=== PATIENT | male | born 2000 | race Caucasian/White ===

== ENCOUNTER 2018-01-10 21:00 | Emergency (ER) | payer BC ==
[2018-01-10] MEDS ORDERED: Ketorolac INJ* 30 MG/ML 1 ML VIAL IV PUSH ONE (22:18)
[2018-01-10] MEDS ORDERED: Diphenoxylat/Atrop 2.5-0.025M* 1 TAB PO ONE (22:18)
[2018-01-10] MEDS ORDERED: Metoclopramide IV* 5 MG/ML 2 ML VIAL IV SLOW PU ONE (22:18)
[2018-01-10] MEDS ORDERED: NS 0.9% 1000 ML* 1,000 ML IV ONE (22:18)
[2018-01-10 22:29] LABS: ABS Basophils 0 10^3/ul (0-0.2); ABS Eosinophils 0 10^3/ul (0-0.6); ABS Monocytes 0.7 10^3/ul (0-0.8); ABS Neutrophils 8.1 10^3/ul (1.5-7.7); ABS Nucleated RBC 0 10^3/ul; Eosinophil % 0 % (0-6); Hematocrit 47 % (42-52); Hemoglobin 16.1 g/dl (14.0-18.0); Lymphocyte % 10.4 % (25-47); Mean Corpuscular HGB Conc 34 g/dl (31-36); Mean Corpuscular Hemoglobin 29 pg (27-31); Mean Corpuscular Volume 85 fL (80-94); Mean Platelet Volume 8.7 um3 (7.4-10.4); Nucleated Red Blood Cells % 0.1; Platelet Count 263 10^3/ul (150-450); Red Blood Count 5.51 10^6/ul (4.0-5.4); Red Cell Distribution Width 13 % (10.5-15); White Blood Count 9.8 10^3/ul (3.5-10.8)
[2018-01-10 22:49] LABS: EGFR Non-African American 95.2 (>60)
[2018-01-11 00:19] VITALS: BP 105/59
--- NOTE | 2018-01-11 00:28 | ED ---
Fran Golden Gabriel, scribed for Michelle Mireles MD on 01/10/18 at 2159 . Abdominal Pain/Male - HPI Summary HPI Summary: This patient is a 17 year old M presenting to [facility] accompanied by his girlfriend with a chief complaint of intermittent LLQ ABD pain that began 3 days ago. The patient rates the pain 7/10 in severity. Patient reports n/v/d. Patient denies fever. Pt was seen in ED yesterday for similar symptoms and is requesting stronger pain medication than the Percocet he was sent home with yesterday. - History of Current Complaint Chief Complaint: EDAbdPain Stated Complaint: ABD PAIN Time Seen by Provider: 01/10/18 21:51 Hx Obtained From: Patient Onset/Duration: Lasting Days, Still Present Timing: Constant Severity Initially: Moderate Severity Currently: Moderate Pain Intensity: 7 Pain Scale Used: 0-10 Numeric Location: Suprapubic Radiates: No Associated Signs And Symptoms: Positive: Negative - fever, Other - NVD - Allergies/Home Medications Allergies/Adverse Reactions: Allergies Allergy/AdvReac Type Severity Reaction Status Date / Time No Known Allergies Allergy Verified 01/10/18 21:09 PMH/Surg Hx/FS Hx/Imm Hx Endocrine/Hematology History: Denies: Hx Diabetes GI History: Reports: Other GI Disorders - constipation History: Denies: Hx Kidney Stones Musculoskeletal History: Denies: Hx Arthritis, Hx Osteoporosis Sensory History: Denies: Hx Legally Blind, Hx Deafness Opthamlomology History: Denies: Hx Legally Blind Infectious Disease History: No Infectious Disease History: Denies: Traveled Outside the [place] in Last 30 Days - Social History Alcohol Use: None Substance Use Type: Reports: None Smoking Status (MU): Never Smoked Tobacco Review of Systems Negative: Fever Positive: Abdominal Pain, Vomiting, Diarrhea, Nausea All Other Systems Reviewed And Are Negative: Yes Physical Exam - Summary Physical Exam Summary: VITAL SIGNS: Reviewed. GENERAL: Patient is a well-developed and nourished male who is lying comfortable in the stretcher. Patient is not in any acute respiratory distress. HEAD AND FACE: No signs of trauma. No ecchymosis, hematomas or skull depressions. No sinus tenderness. EYES: PERRLA, EOMI x 2, No injected conjunctiva, no nystagmus. EARS: Hearing grossly intact. Ear canals and tympanic membranes are within normal limits. MOUTH: Oropharynx within normal limits. NECK: Supple, trachea is midline, no adenopathy, no JVD, no carotid bruit, no c- spine tenderness, neck with full ROM. CHEST: Symmetric, no tenderness at palpation LUNGS: Clear to auscultation bilaterally. No wheezing or crackles. CVS: Regular rate and rhythm, S1 and S2 present, no murmurs or gallops appreciated. ABDOMEN: Soft . No signs of distention. No rebound no guarding, and no masses palpated. Bowel sounds are hyper active with mild TTP over LLQ EXTREMITIES: FROM in all major joints, no edema, no cyanosis or clubbing. NEURO: Alert and oriented x 3. No acute neurological deficits. Speech is normal and follows commands. SKIN: Dry and warm Triage Information Reviewed: Yes Vital Signs On Initial Exam: Initial Vitals Temp Pulse Resp BP Pulse Ox 99.0 F 95 16 148/64 99 01/10/18 21:05 01/10/18 21:05 01/10/18 21:05 01/10/18 21:05 01/10/18 21:05 Vital Signs Reviewed: Yes Diagnostics - Vital Signs Vital Signs Temp Pulse Resp BP Pulse Ox 01/10/18 21:05 99.0 F 95 16 148/64 99 - Laboratory Result Diagrams: 01/10/18 21:52 01/10/18 21:52 Lab Statement: Any lab studies that have been ordered have been reviewed, and results considered in the medical decision making process. Re-Evaluation - Re-Evaluation First Eval Re-Evaluation Time: 00:11 Change: Improved - Pt is feeling better. Abdominal Pain Fem Course/Dx - Course Assessment/Plan: This patient is a 17 year old M presenting to [facility] accompanied by his girlfriend with a chief complaint of intermittent LLQ ABD pain that began 3 days ago. The patient rates the pain 7/10 in severity. Patient reports n/v/d. Patient denies fever. Pt was seen in ED yesterday for similar symptoms and is requesting stronger pain medication than the Percocet he was sent home with yesterday. Pt had a CT which showed a pancreatic cyst yesterday. He has a GI appointment this week. Dx gastroenteritis. Test results with no significant abnormalities except for a glucose of 125. In the ED course the patient was given toradol, IV fluids, reglan, and lomotil. Patient will be discharged with prescription for reglan and lomotil and follow up from GI. The patient is agreeable with this plan. - Diagnoses Provider Diagnoses: Gastroenteritis Discharge - Sign-Out/Discharge Documenting (check all that apply): Discharge - Discharge Plan Condition: Stable Disposition: HOME Prescriptions: Diphenoxylat/Atrop 2.5-0.025M* [Lomotil TAB*] 1 tab PO QID PRN #10 tab MDD 4 PRN Reason: Diarrhea Metoclopramide TAB* [Reglan TAB*] 10 mg PO Q6H PRN #20 tab PRN Reason: Nausea/Vomiting Patient Education Materials: Gastroenteritis (ED) [facility] - 3 Days Additional Instructions: Please keep your GI appointment this week. RETURN TO THE EMERGENCY DEPARTMENT FOR CHANGING OR WORSENING SYMPTOMS. The documentation as recorded by the Fran mcclendon Gabriel accurately reflects the service I personally performed and the decisions made by me, Michelle Mireles MD.
== END 2018-01-11 00:23 | disposition home or self-care (01) ==
LOC: ED 21:00
DX: K52.9 Noninfective gastroenteritis and colitis, unspecified (principal); R11.2 Nausea with vomiting, unspecified; R10.32 Left lower quadrant pain
CPT/HCPCS: 36415; 80053; 82150; 83605; 83690; 83735; 85025; 86140; 87040; 99284; A9270-GY; J1885; J2765

== ENCOUNTER 2018-07-20 10:26 | Emergency (ER) | payer SELFPAY ==
[2018-07-20] MEDS ORDERED: Magnesium CITRATE* 300 ML BTL PO ONE (12:47)
--- NOTE | 2018-07-20 13:00 | RAD ---
HISTORY: pain, constipation COMPARISONS: None VIEWS: Frontal views of the abdomen. FINDINGS: BOWEL: There is a nonobstructive bowel gas pattern. There is a large amount of stool within the colon. CALCULI: There are no abnormal calculi. BONES AND SOFT TISSUES: There are no osseous abnormalities. OTHER FINDINGS: The lung bases are clear. There is no subphrenic gas. IMPRESSION: NONOBSTRUCTIVE BOWEL GAS PATTERN. LARGE AMOUNT OF STOOL WITHIN THE COLON.
[2018-07-20] MEDS ORDERED: Sodium Phosphate ADULT ENEMA* 118 ml bottle PR ONE (14:06)
--- NOTE | 2018-07-20 14:13 | ED ---
Progress - Progress Note Progress Note: This patient is a 18 year old M presenting to [facility] with a chief complaint of waxing and waning LLQ abd pain since 07/18/18. Pt endorses eating a lot of cheese. 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 FHx Parkinsons disease. His mother committed suicide last month, a major stressor for him. His brother is autistic, his father recent mental health admission s/p pts mothers suicide. The patient is planning his mothers . Pain has kept him up past 2 nights. He notes that he went to 1 bereavement support group meeting. He denies SI, endorses loneliness. He endorses depression onset before his mothers secondary to troubles at school. PE: Constitutional: Well-developed, Well-nourished, Alert. (-) Distressed Skin: Warm, Dry HENT: Normocephalic; Atraumatic Eyes: Conjunctiva normal Neck: Musculoskeletal ROM normal neck. (-) JVD, (-) Stridor, (-) Tracheal deviation Cardio: Rhythm regular, rate normal, Heart sounds normal; Intact distal pulses; The pedal pulses are 2+ and symmetric. Radial pulses are 2+ and symmetric. (-) Murmur Pulmonary/Chest wall: Effort normal. (-) Respiratory distress, (-) Wheezes, (-) Rales Abd: Soft, (-) epigastric tenderness, (-) Distension, (-) Guarding, (-) Rebound Musculoskeletal: (-) Edema Lymph: (-) Cervical adenopathy Neuro: Alert, Oriented x3 Psych: Mood and affect Normal - Results/Orders Results/Orders: abd xr: NONOBSTRUCTIVE BOWEL GAS PATTERN. LARGE AMOUNT OF STOOL WITHIN THE COLON. Dr. Lanza has reviewed this report. Re-Evaluation - Re-Evaluation First Eval Re-Evaluation Time: 16:32 Change: Unchanged Comment: Still hasn't had a BM, would like an enema. Course/Dx - Course Course Of Treatment: An abd XR reveals NONOBSTRUCTIVE BOWEL GAS PATTERN. LARGE AMOUNT OF STOOL WITHIN THE COLON. - Diagnoses Provider Diagnoses: Constipation, Stress, Anxiety, Grief reaction Discharge - Sign-Out/Discharge Documenting (check all that apply): Patient Departure - discharge - Discharge Plan Condition: Stable Disposition: HOME Patient Education Materials: Grief and Loss (ED), Stress (ED), Anxiety (ED), Constipation (ED) Referrals: [facility] [Outside] Additional Instructions: Return to the emergency department for any new or worsening symptoms. Follow up with [facility] in 2-3 days. 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 - Attestation Statements Document Initiated by Scribe: Yes Documenting Scribe: Jeff Macdonald Provider For Whom Scribe is Documenting (Include Credential): Dr. Warren Lanza MD Scribe Attestation: Jeff Golden, scribed for Dr. Warren Lanza MD on 07/20/18 at 8327.
[2018-07-20] MEDS ORDERED: Ondansetron ODT TAB* 4 MG SL ONE (14:16)
--- NOTE | 2018-07-20 15:27 | ED ---
Abdominal Pain/Male - HPI Summary HPI Summary: Patient is a 18-year-old male who presents emergency department for left lower quadrant abdominal pain times several days. Associated symptoms of bloating and constipation. Patient denies upper respiratory symptoms, cough, chest pain , shortness of breath, testicular pain/swelling, dysuria, penile discharge. Notes episode of vomiting. Patient states he has had another symptoms in the past and feels they may be stress related. Patient was seen in the ER last year for similar symptoms and had a CAT scan done at that time. A pancreatic cyst was found at that time. Patient states he followed up with the GI doctor and had an endoscopy done and was cleared. Patient does note that he has been under a lot of stress recently. Patient notes that he was seen at [facility] yesterday and had blood work done which she states was "normal." He notes that his mother had chronic illness and committed suicide last month. Patient states he does have a counselor at school. He denies suicidal ideations. Symptoms are moderate in severity. No current modifying factors. - History of Current Complaint Chief Complaint: EDAbdPain Stated Complaint: LOWER LT ABD PAIN Time Seen by Provider: 07/20/18 11:27 Hx Obtained From: Patient Pain Intensity: 8 - Allergies/Home Medications Allergies/Adverse Reactions: Allergies Allergy/AdvReac Type Severity Reaction Status Date / Time No Known Allergies Allergy Verified 07/20/18 10:39 Home Medications: Home Medications NK [No Home Medications Reported] 07/20/18 [History Confirmed 07/20/18] PMH/Surg Hx/FS Hx/Imm Hx Previously Healthy: Yes Endocrine/Hematology History: Denies: Hx Diabetes GI History: Reports: Other GI Disorders - constipation History: Denies: Hx Kidney Stones Musculoskeletal History: Denies: Hx Arthritis, Hx Osteoporosis Sensory History: Denies: Hx Legally Blind, Hx Deafness Opthamlomology History: Denies: Hx Legally Blind - Immunization History Immunizations Up to Date: Unable to Obtain/Confirm Infectious Disease History: No Infectious Disease History: Denies: Traveled Outside the [place] in Last 30 Days - Social History Occupation: Student Lives: Dormitory/Roommates Alcohol Use: Rare Substance Use Type: Reports: None Smoking Status (MU): Never Smoked Tobacco Review of Systems Constitutional: Negative Negative: Fever, Chills Eyes: Negative ENT: Negative Cardiovascular: Negative Respiratory: Negative Positive: Abdominal Pain, Other - constipation. Negative: Vomiting, Diarrhea, Nausea Genitourinary: Negative Positive: other - No testicular pain Neurological: Negative All Other Systems Reviewed And Are Negative: Yes Physical Exam Triage Information Reviewed: Yes Vital Signs On Initial Exam: Initial Vitals Temp Pulse Resp BP Pulse Ox 97.1 F 86 17 122/74 98 07/20/18 10:37 07/20/18 10:37 07/20/18 10:37 07/20/18 10:37 07/20/18 10:37 Vital Signs Reviewed: Yes Appearance: Positive: Well-Appearing - Patient lying in bed in no acute distress. Anxious. Curses frequently. Skin: Positive: Warm, Dry Head/Face: Positive: Normal Head/Face Inspection ENT: Positive: Pharynx normal, TMs normal Neck: Positive: Supple Respiratory/Lung Sounds: Positive: Clear to Auscultation, Breath Sounds Present Cardiovascular: Positive: Normal, RRR Abdomen Description: Positive: Other: - Abd. is mild distended. Minimal tenderness to the LLQ. No rebound tenderness or guarding. Neurological: Positive: Normal, CN Intact II-III Psychiatric: Positive: Anxious Diagnostics - Vital Signs Vital Signs Temp Pulse Resp BP Pulse Ox 07/20/18 15:24 99.2 F 68 18 129/65 99 07/20/18 10:37 97.1 F 86 17 122/74 98 - Laboratory Lab Statement: Any lab studies that have been ordered have been reviewed, and results considered in the medical decision making process. Abdominal Pain Fem Course/Dx - Course Course Of Treatment: Pt. presenting for LLQ pain and constipation. He is afebrile and well appearing. He has a benign abd. exam. Pt. has blood work at [facility] yesterday and declines repeat blood work today. Work proof clerk attempted to get results but clinic was closed. Abd. Xr per radiology: NONOBSTRUCTIVE BOWEL GAS PATTERN. LARGE AMOUNT OF STOOL WITHIN THE COLON. Results discussed with pt. He is requesting medication in ER to help him have a BM, mag citrate ordered. Pt. continues to be very anxious. He notes once again his current stressors. He aden SI. Pt. states he would like to speak with someone. I am concerned with pt.'s risk factors given his mother's suicide, family hx of mental illness, and his stress at school that he is at high risk. Case discussed with Dr. Lanza who will take over care of pt. and MHE will be started. - Diagnoses Differential Diagnosis/HQI/PQRI: Appendicitis, Bowel Obstruction, Constipation, Peptic Ulcer Disease Provider Diagnoses: Constipation, Stress, Anxiety Discharge - Sign-Out/Discharge Documenting (check all that apply): Sign-Out Patient Signing out patient TO: Warren Lanza - Discharge Plan Condition: Stable Referrals: No Primary Care Phys,[facility] [Primary Care Provider] - - Billing Disposition and Condition Condition: STABLE
[2018-07-20] MEDS ORDERED: Polyethylene Glycol 3350* 17 GM PACKET PO ONE (17:18)
[2018-07-20 18:42] VITALS: BP 0/0
== END 2018-07-20 18:41 | disposition home or self-care (01) ==
LOC: ED 10:26
DX: K59.00 Constipation, unspecified (principal); F43.9 Reaction to severe stress, unspecified; F41.9 Anxiety disorder, unspecified; F43.22 Adjustment disorder with anxiety
CPT/HCPCS: 74018; 99283; A9270-GY

== ENCOUNTER 2019-07-11 09:08 | Emergency (ER) | payer OTHER ==
--- OUTSIDE RECORDS SUMMARY | 2019-07-11 09:28 | XMS REPORT | Summary of Care ---
:2000 Author Organization [facility] Address [address] [address] Care Team Providers Name Role Phone Dominik Tarango DO Primary Care Provider Reason for Visit Reason Comments Follow Up here for follow up; question HPV vaccine and also over weight; Encounter Details Date Type Department Care Team Description 06/27/2019 Office Visit [facility] Dominik Tarango DO Anxiety (Primary Dx); Practice [address] [facility] Screen for STD (sexually transmitted disease) [address] [place] [address] [place] [address] [phone] Allergies No Known Allergiesdocumented as of this encounter (statuses as of 06/28/2019) Medications Medication Sig Dispensed Refills Start Date End Date Status sertraline (ZOLOFT) Take 0.5 Tabs 90 Tab 0 03/27/2019 Active 50 MG Oral by mouth TabIndications: DAILY. Anxiety ondansetron (ZOFRAN Take 8 mg by 0 06/27/2019 Discontinued ODT) 8 MG Oral mouth EVERY TABLET DISPERSIBLE EIGHT HOURS NEEDED for Nausea/Vomitin g. Bisacodyl Take 4 Tabs by 4 Tab 0 11/20/2018 06/27/2019 Discontinued (DULCOLAX) 5 MG mouth Oral Tab EC DIRECTED. polyethylene glycol Take 17 g by 238 g 0 11/20/2018 06/27/2019 Discontinued (MIRALAX) Oral mouth Powder DIRECTED. simethicone Take 1 Tab by 2 Tab 0 11/20/2018 06/27/2019 Discontinued (GENASYME, MYLICON) mouth 80 MG Oral Chew Tab DIRECTED. fluticasone SPRAY 2 SPRAYS 1 Bottle 3 03/06/2019 06/27/2019 Discontinued (FLONASE) 50 IN EACH MCG/ACT Nasal NOSTRIL ONCE A SuspensionIndicatio DAY ns: Acute URI DIRECTED. documented as of this encounter (statuses as of 06/28/2019) Active Problems Problem Noted Date Pancreatic cyst Anxiety documented as of this encounter (statuses as of 06/28/2019) Immunizations Name Administration Dates Next Due HPV 9 02/19/2019 documented as of this encounter Social History Tobacco Use Types Packs/Day Years Used Date Never Smoker Smokeless Tobacco: Never Used Alcohol Use Drinks/Week oz/Week Comments Yes once a month: 5 beers Sex Assigned at Date Recorded Not on file Job Start Date Occupation Industry Not on file Not on file Not on file Travel History Travel Start Travel End No recent travel history available. documented as of this encounter Last Filed Vital Signs Vital Sign Reading Time Taken Comments Blood Pressure 122/64 06/27/2019 11:51 AM EDT Pulse 70 06/27/2019 11:51 AM EDT Temperature - - Respiratory Rate - - Oxygen Saturation 98% 06/27/2019 11:51 AM EDT Inhaled Oxygen Concentration - - Weight 76.2 kg (168 lb 1.6 oz) 06/27/2019 11:51 AM EDT Height 170.2 cm (5' 7") 06/27/2019 11:51 AM EDT Body Mass Index 26.33 06/27/2019 11:51 AM EDT documented in this encounter Progress Notes Dominik Tarango, DO - 06/27/2019 11:40 AM EDT PATIENT: Royal Guaman : 2000 DATE OF SERVICE: 06/27/2019 CHIEF COMPLAINT: Chief Complaint Patient presents with Follow Up here for follow up; question HPV vaccine and also over weight; Subjective HISTORY OF PRESENT ILLNESS: Royal Guaman is a 19-y.o. male. HPI Anxiety: Doing well on zoloft 25 mg No SI or HI STD screening wanted One partner at a time Usually using condoms Past Medical History: Diagnosis Date Anxiety Pancreatic cyst Family History Problem Relation Age of Onset Colon Cancer Maternal Grandmother late 60's Current Outpatient Medications Medication Sig sertraline (ZOLOFT) 50 MG Oral Tab Take 0.5 Tabs by mouth DAILY. No current facility-administered medications for this visit. No Known Allergies Social History Socioeconomic History Marital status: Single Spouse name: Not on file Number of children: Not on file Years of education: Not on file Highest education level: Not on file Occupational History Not on file Social Needs Financial resource strain: Not on file Food insecurity: Worry: Not on file Inability: Not on file Transportation needs: Medical: Not on file Non-medical: Not on file Tobacco Use Smoking status: Never Smoker Smokeless tobacco: Never Used Substance and Sexual Activity Alcohol use: Yes Comment: once a month: 5 beers Drug use: Not Currently Sexual activity: Not on file Lifestyle Physical activity: Days per week: Not on file Minutes per session: Not on file Stress: Not on file Relationships Social connections: Talks on phone: Not on file Gets together: Not on file Attends islam service: Not on file Active member of club or organization: Not on file Attends meetings of clubs or organizations: Not on file Relationship status: Not on file Intimate partner violence: Fear of current or ex partner: Not on file Emotionally abused: Not on file Physically abused: Not on file Forced sexual activity: Not on file Other Topics Concern Not on file Social History Narrative Isaac IC REVIEW OF SYSTEMS: Review of Systems Constitutional: Negative for fever. Cardiovascular: Negative for chest pain. Gastrointestinal: Negative for abdominal pain. Neurological: Negative for dizziness. Objective PHYSICAL EXAM: VITALS: BP 122/64 (BP Location: Left arm, Patient Position: Sitting) | Pulse 70 | Ht 5' 7" (1.702m) | Wt 168 lb 1.6 oz (76.2 kg) | SpO2 98% | BMI 26.33 kg/m Body mass index is 26.33 kg/m. Physical Exam Constitutional: He appears well-developed and well-nourished. No distress. HENT: Head: Normocephalic and atraumatic. Mouth/Throat: Oropharynx is clear and moist. No oropharyngeal exudate. Eyes: Conjunctivae are normal. Right eye exhibits no discharge. Left eye exhibits no discharge. No scleral icterus. Cardiovascular: Normal rate and regular rhythm. Pulmonary/Chest: Effort normal and breath sounds normal. Skin: He is not diaphoretic. ASSESSMENT / IMPRESSION: ICD-9-CM ICD-10-CM 1. Anxiety 300.00 F41.9 2. Screen for STD (sexually transmitted disease) V74.5 Z11.3 GC/CHLAMYDIA PCR ASSAY HEPATITIS C ANTIBODY HEPATITIS B SURFACE ANTIGEN HIV 1,2 ANTIBODY SCREEN RPR GC/CHLAMYDIA PCR ASSAY RPR HIV 1,2 ANTIBODY SCREEN HEPATITIS B SURFACE ANTIGEN HEPATITIS C ANTIBODY Plan Continue zoloft for anxiety for next 6 months at least Std testing ordered. Advised condoms every time unless in a prison relationship Follow up prn Author: Dominik Tarango DO 06/28/2019 09:15 documented in this encounter Plan of Treatment Date Type Specialty Care Team Description 07/03/2019 Office Visit Gastroenterology Cecile Butler, [facility] [address] [address] [phone] 07/25/2019 Nurse/Clinical Support Internal Medicine 08/27/2019 Office Visit Family Practice Dominik Tarango DO [address] [place] [address] [phone] Name Type Priority Associated Diagnoses Date/Time HIV 1,2 ANTIBODY SCREEN Lab Routine Screen for STD (sexually 06/27/2019 12: 29 PM EDT transmitted disease) RPR Lab Routine Screen for STD (sexually 06/27/2019 12:29 PM EDT transmitted disease) Name Type Priority Associated Diagnoses Order Schedule HIV 1,2 ANTIBODY SCREEN Lab Routine Screen for STD (sexually Expected: transmitted disease) (Approximate), Expires: 06/27/2020 RPR Lab Routine Screen for STD (sexually Expected: 06/27/2019 transmitted disease) (Approximate), Expires: 06/27/2020 Health Maintenance Due Date Last Done Comments HPV IMMUNIZATION SERIES (2 - Male 03/19/2019 02/19/2019 3-dose series) INFLUENZA VACCINE (#1) 2019 HIV SCREENING 12/07/2019 Postponed from 2013 (Patient refused) DEPRESSION SCREENING 12/07/2020 Postponed from 2010 (Other) MENINGOCOCCAL VACCINE IMM Aged Out No longer eligible based on patient's age to complete this topic PNEUMOCOCCAL 0-64 YRS Aged Out No longer eligible based on patient's age to complete this topic documented as of this encounter Procedures Procedure Name Priority Date/Time Associated Diagnosis Comments HEPATITIS C Routine 06/27/2019 12:29 PM Screen for STD Results for this ANTIBODY EDT (sexually procedure are in transmitted disease) the results section. HEPATITIS B SURFACE Routine 06/27/2019 12:29 PM Screen for STD Results for this ANTIGEN EDT (sexually procedure are in transmitted disease) the results section. GC/CHLAMYDIA DNA Routine 06/27/2019 12:20 PM Screen for STD Results for this PROBE EDT (sexually procedure are in transmitted disease) the results section. documented in this encounter Results HEPATITIS B SURFACE ANTIGEN (06/27/2019 12:29 PM EDT) Hepatitis B Surface 0.05 <0.90 S/C [facility] Antigen LABORATORY Specimen Blood Narrative Performed At [employer] Test Result [facility] Conclusion from Testing Algorithm <0.90 Negative >=0.90 and <=5.00 Reactive >5.00 Positive Performing Organization Address City[facility] Phone Number [facility] [address] [place] [address] [phone] HEPATITIS C ANTIBODY (06/27/2019 12:29 PM EDT) Hepatitis C Ab 0.02 <1.00 S/C [facility] Specimen Blood Narrative Performed At [employer] Test Result [facility] Conclusion From Testing Algorithm <1.00 Negative >=1.00 Reactive Note For Reactive Results: A positive test result by this screening method does not confirm the presence of Hepatitis C antibodies. Confirmation by Hepatitis C Virus RNA PCR (Heptamax) is required. Due to stability issues, a new specimen must be obtained for Hepatitis C Virus RNA PCR testing. Performing Organization Address City/[facility] Phone Number [facility] [address] [place] [address] GC/CHLAMYDIA PCR ASSAY (06/27/2019 12:20 PM EDT) Chlamydia trachomatis Negative Negative [facility] PCR Assay LABORATORY Neisseria gonorrhoeae Negative Negative [facility] PCR Assay LABORATORY Specimen Urogenital Narrative Performed At This assay has not been evaluated in patients less [facility] than 14 years of age, in women, or in patients with a history of hysterectomy. The assay should not be used for the evaluation of suspected sexual abuse or for other medico-legal indications. Performing Organization Address City/State/Zipcode Phone Number [facility] [address] [address] [phone] documented in this encounter Visit Diagnoses Diagnosis Anxiety - Primary Anxiety state, unspecified Screen for STD (sexually transmitted disease) Screening examination for venereal disease documented in this encounter Insurance Payer Benefit Plan / Subscriber ID Effective Dates Phone Address Type Group [facility]Present A[employer] documented as of this encounter
--- OUTSIDE RECORDS SUMMARY | 2019-07-11 09:28 | XMS REPORT | Summary of Care ---
:2000 Author Organization [facility] Address [address] [facility] [place] [address] Care Team Providers Name Role Phone Dominik Tarango DO Primary Care Provider Reason for Referral MRI/CAT/PET Scan (Routine) Status Reason Specialty Diagnoses / Referred By Referred To Procedures Contact Contact Pending Review Diagnoses Pancreatic cyst Mckenna Butler MR ABDOMEN W CONTRAST Cecile Harman NP [address] [place] [address] Reason for Visit Reason Comments Follow-up Follow-up on abdominal pain. Pt. complaining of recurring constipation. Encounter Details Date Type Department Care Team Description 07/03/2019 Office Visit Alexandro Vila indigkay (Primary Dx); Gastroenterology/Hepa Cecile Harman NP Pancreatic cyst; tology 1 BURCH SQ Change in bowel habits [address] [place] [address] [place] [address] Allergies No Known Allergiesdocumented as of this encounter (statuses as of 07/03/2019) Medications Medication Sig Dispensed Refills Start Date End Date Status sertraline Take 0.5 90 Tab 0 03/27/2019 Active (ZOLOFT) 50 MG Tabs by Oral mouth TabIndications: DAILY. Anxiety famotidine Take 1 Tab 30 Tab 1 07/03/2019 Active (PEPCID) 40 MG by mouth Oral DAILY. TabIndications: Acid indigestion famotidine Take 1 Tab 30 Tab 1 07/03/2019 07/03/2019 Discontinued (PEPCID) 40 MG by mouth (Reorder) Oral Tab DAILY. documented as of this encounter (statuses as of 07/03/2019) Active Problems Problem Noted Date Irritable bowel syndrome 07/03/2019 Pancreatic cyst Anxiety documented as of this encounter (statuses as of 07/03/2019) Immunizations Name Administration Dates Next Due HPV [...] Sign Reading Time Taken Comments Blood Pressure 118/80 07/03/2019 10:41 AM EDT Pulse 72 07/03/2019 10:41 AM EDT Temperature 36 07/03/2019 10:41 AM EDT C (96.8 F) Respiratory Rate - - Oxygen Saturation - - Inhaled Oxygen Concentration - - Weight 74.8 kg (165 lb) 07/03/2019 10:41 AM EDT Height 170.2 cm (5' 7") 07/03/2019 10:41 AM EDT Body Mass Index 25.84 07/03/2019 10:41 AM EDT documented in this encounter Patient Instructions Patient InstructionsCecile Butler NP - 07/03/2019 10:40 AM EDT1. Start daily dose of Pepcid 2. See diet below 3. MR abd. needs to be authorized, then we will contact you to schedule 4. Follow up after the above Thank you for choosing the [facility] for your needs today! -Cecile Butler N.P. , Please call if you need to cancel or change your appt. time. Thank you for choosing [facility] for your health care needs, and for consulting with [facility] today. You may receive a survey following this visit, or after an upcoming hospital stay. As easy as it is to feel overloaded with surveys, we are required to send them out randomly and they do provide important feedback so that we may serve your needs in the best way. Please do take the few minutes required to complete the survey if you receive one. We get them too, after seeing the doctor, and they only take a few minutes to complete. Patient Education Irritable Bowel Syndrome Discharge Instructions About this topic Irritable bowel syndrome, or IBS, is a common long-term health problem of your belly. It does not cause swelling and does not lead to a more serious problem. The cause of IBS is not clear. There is no cure for IBS. Care focuses on how to control the signs. Signs may be mild to very bad. They can last for weeks or months. The main signs are: Belly pain Belly fullness Gassy feeling Bloating Upset stomach Loose or hard stools Loss of appetite What care is needed at home? Ask your doctor what you need to do when you go home. Make sure you ask questions if you do not understand what the doctor says. This way you will know what you need to do. Ask your doctor and learn how to cope with stress. This may include: Relaxation Doing an activity to relieve stress Counseling Joining a support group What follow-up care is needed? Your doctor may ask you to make visits to the office to check on your progress. Be sure to keep these visits. What drugs may be needed? The doctor may order drugs to: Help with pain Control belly muscle spasms Treat hard or loose stools and signs Fight an infection Be sure to take all drugs as ordered by your doctor. Will physical activity be limited? Physical activity may not be limited. You may be limited by your signs. They may keep you from goingto school or work and going to social events. Regular workouts can help improve your bowel function and other signs of IBS. What changes to diet are needed? Keep a diary of what you eat and how your body responds. This way you can figure out if anything you eat makes your signs better or worse. Talk to your doctor about it. Your doctor may suggest these changes. Be sure to pay attention to how your signs change with each one. ? Eat high-fiber foods like whole grains, fruits, and vegetables. ? Limit foods that can make you have gas. You may want to avoid onion, cabbage, Naoma sprouts, dried beans, lentils, broccoli, and cauliflower. ? Limit foods and drinks with artificial sweeteners. This includes foods with aspartame, sorbitol, and mannitol. ? Limit milk products such as milk, ice cream, and some yogurts. See if this changes your signs. ? Avoid drinks with caffeine, such as coffee and tea. Avoid beer, wine, and mixed drinks (alcohol). ? Avoid foods that make you feel worse. When do I need to call the doctor? Change in your bowel movements that does not go away Blood in your stool Throwing up and loose stools for more than 24 hours You are not feeling better in 2 to 3 days or you are feeling worse Teach Back: Helping You Understand The Teach Back Method helps you understand the information we are giving you. The idea is simple. After talking with the staff, tell them in your own words what you were just told. This helps to make sure the staff has covered each thing clearly. It also helps to explain things that may have been a bit confusing. Before going home, make sure you are able to do these: I can tell you about my condition. I can tell you how I will cope with stress. I can tell you what I will do if I have blood in my bowel movements or a change in my bowel movements that does not go away. Where can I learn more? [employer] [place] https://daa.asn.au/nuoul-nxuehe-saa-you/zaklj-opnvpf-wyku-facts/medical/a-guide- wg-bhydnrirv-gpjnc-syndrome/ International Foundation for Functional Gastrointestinal Disorders http://www.aboutibs.org/zfszg-giz-eqaenvpe-main.html National Digestive Diseases Information Clearinghouse http://digestive.niddk.nih.gov/ddiseases/pubs/ibs/#help Last Reviewed Date 2017-04-27 Consumer Information Use and Disclaimer This information is not specific medical advice and does not replace information you receive from your health care provider. This is only a brief summary of general information. It does NOT include allinformation about conditions, illnesses, injuries, tests, procedures, treatments, therapies, discharge instructions or life-style choices that may apply to you. You must talk with your health care provider for complete information about your health and treatment options. This information should not beused to decide whether or not to accept your health care providers advice, instructions or recommendations. Only your health care provider has the knowledge and training to provide advice that isright for you. Copyright Copyright 2018 [employer] and its affiliates and/or licensors. All rights reserved. documented in this encounter Progress Notes Cecile Butler NP - 07/03/2019 10:40 AM EDT PATIENT: Royal Guaman : 2000 DATE OF SERVICE: 07/03/2019 REFERRING PRACTITIONER: Dominik Tarango PRIMARY CARE PROVIDER: Dominik Tarango CHIEF COMPLAINT: Chief Complaint Patient presents with Follow-up Follow-up on abdominal pain. Pt. complaining of recurring constipation. Subjective HISTORY OF PRESENT ILLNESS: Royal Guaman is a 19-y.o. male who presents for follow-up of history of pancreatic cyst. Last MRI 02/2019 had shown the cyst to be decreasing in size. He has been away for schooling and returned to [place] a few weeks ago. He reports this month is the anniversary of his mother's , this has caused some increase in anxiety and stress. This past week he has had increasing indigestion, bloating and loose stools. He denies dysphagia, fatigue, nausea, vomiting, melena, hematemesis, hematochezia, constipation, jaundice, fevers, chills, night sweats, weight loss , easy bruising, chest pain, shortness of breath, dysuria, hematuria, pyuria, joint pains, acholic stools, dark urine or systemic pruritis. Current Outpatient Medications Medication Sig famotidine (PEPCID) 40 MG Oral Tab Take 1 Tab by mouth DAILY. sertraline (ZOLOFT) 50 MG Oral Tab Take 0.5 Tabs by mouth DAILY. No current facility-administered medications for this visit. No Known Allergies REVIEW OF SYSTEMS: All remaining review of systems was negative except for as noted in the history of present illness/subjective. Objective PHYSICAL EXAMINATION: VITALS: BP 118/80 | Pulse 72 | Temp 96.8 F (36 C) | Ht 5' 7" (1.702 m) | Wt 165 lb (74.8 kg) | BMI 25.84 kg/m Body mass index is 25.84 kg/m . GENERAL: alert, oriented, no acute distress. HEENT: No scleral icterus, MMM Psych: Affect normal Neck: no lymphadenopathy LUNGS: clear to auscultation bilaterally. HEART: regular rhythm, no murmurs, no gallops, no rubs. ABDOMEN: general exam: soft, periumbilical tender, non-distended, without masses or organomegaly, normal active bowel sounds, Colvin's sign negative. Extrmities: no edema Skin: clear Neuro: gait normal, a&o x 3 RECTAL: exam deferred. IMPRESSION: ICD-9-CM ICD-10-CM 1. Acid indigestion 536.8 K30 famotidine (PEPCID) 40 MG Oral Tab 2. Pancreatic cyst 577.2 K86.2 MR ABDOMEN W CONTRAST 3. Change in bowel habits 787.99 R19.4 Recent GI symptoms likely IBS related to stress. Plan PLAN: Patient Instructions 1. Start daily dose of Pepcid 2. See diet below 3. MR abd. needs to be authorized, then we will contact you to schedule 4. Follow up after the above Thank you for choosing the [facility] for your needs today! -Cecile Butler N.P. , Please call if you need to cancel or change your appt. time. Thank you for choosing [facility] for your health care needs, and for consulting with [facility] today. You may receive a survey following this visit, or after an upcoming hospital stay. As easy as it is to feel overloaded with surveys, we are required to send them out randomly and they do provide important feedback so that we may serve your needs in the best way. Please do take the few minutes required to complete the survey if you receive one. We get them too, after seeing the doctor, and they only take a few minutes to complete. Patient Education Irritable Bowel Syndrome Discharge Instructions About this topic Irritable bowel syndrome, or IBS, is a common long-term health problem of your belly. It does not cause swelling and does not lead to a more serious problem. The cause of IBS is not clear. There is no cure for IBS. Care focuses on how to control the signs. Signs may be mild to very bad. They can last for weeks or months. The main signs are: Belly pain Belly fullness Gassy feeling Bloating Upset stomach Loose or hard stools Loss of appetite What care is needed at home? Ask your doctor what you need to do when you go home. Make sure you ask questions if you do not understand what the doctor says. This way you will know what you need to do. Ask your doctor and learn how to cope with stress. This may include: Relaxation Doing an activity to relieve stress Counseling Joining a support group What follow-up care is needed? Your doctor may ask you to make visits to the office to check on your progress. Be sure to keep these visits. What drugs may be needed? The doctor may order drugs to: Help with pain Control belly muscle spasms Treat hard or loose stools and signs Fight an infection Be sure to take all drugs as ordered by your doctor. Will physical activity be limited? Physical activity may not be limited. You may be limited by your signs. They may keep you from goingto school or work and going to social events. Regular workouts can help improve your bowel function and other signs of IBS. What changes to diet are needed? Keep a diary of what you eat and how your body responds. This way you can figure out if anything you eat makes your signs better or worse. Talk to your doctor about it. Your doctor may suggest these changes. Be sure to pay attention to how your signs change with each one. ? Eat high-fiber foods like whole grains, fruits, and vegetables. ? Limit foods that can make you have gas. You may want to avoid onion, cabbage, Naoma sprouts, dried beans, lentils, broccoli, and cauliflower. ? Limit foods and drinks with artificial sweeteners. This includes foods with aspartame, sorbitol, and mannitol. ? Limit milk products such as milk, ice cream, and some yogurts. See if this changes your signs. ? Avoid drinks with caffeine, such as coffee and tea. Avoid beer, wine, and mixed drinks (alcohol). ? Avoid foods that make you feel worse. When do I need to call the doctor? Change in your bowel movements that does not go away Blood in your stool Throwing up and loose stools for more than 24 hours You are not feeling better in 2 to 3 days or you are feeling worse Teach Back: Helping You Understand The Teach Back Method helps you understand the information we are giving you. The idea is simple. After talking with the staff, tell them in your own words what you were just told. This helps to make sure the staff has covered each thing clearly. It also helps to explain things that may have been a bit confusing. Before going home, make sure you are able to do these: I can tell you about my condition. I can tell you how I will cope with stress. I can tell you what I will do if I have blood in my bowel movements or a change in my bowel movements that does not go away. Where can I learn more? [employer] [place] https://daa.asn.au/bbwxq-dsexus-xji-you/ddgbj-dixpnm-ifsn-facts/medical/a-guide- po-vvmciehvu-gscao-syndrome/ International Foundation for Functional Gastrointestinal Disorders http://www.aboutibs.org/aonjs-xte-rmoeycnc-main.html National Digestive Diseases Information Clearinghouse http://digestive.niddk.nih.gov/ddiseases/pubs/ibs/#help Last Reviewed Date 2017-04-27 Consumer Information Use and Disclaimer This information is not specific medical advice and does not replace information you receive from your health care provider. This is only a brief summary of general information. It does NOT include allinformation about conditions, illnesses, injuries, tests, procedures, treatments, therapies, discharge instructions or life-style choices that may apply to you. You must talk with your health care provider for complete information about your health and treatment options. This information should not beused to decide whether or not to accept your health care providers advice, instructions or recommendations. Only your health care provider has the knowledge and training to provide advice that isright for you. Copyright Copyright 2018 [employer], Inc. and its affiliates and/or licensors. All rights reserved. Author: Cecile Butler NP 07/03/2019 12:03 documented in this encounter Plan of Treatment Date Type Specialty Care Team Description 07/25/2019 Nurse/Clinical Support Internal Medicine 08/07/2019 Office Visit Gastroenterology Cecile Butler NP [address] [address] [phone] 08/27/2019 Office Visit Family Practice Dominik Tarango DO [address] [place] [address] [phone] Name Type Priority Associated Diagnoses Order Schedule MR ABDOMEN W CONTRAST Imaging Routine Pancreatic cyst Expected: 07/03/2019, Expires: 07/02/2020 Health Maintenance Due Date Last Done Comments HPV IMMUNIZATION SERIES (2 - Male 03/19/2019 02/19/2019 3-dose series) INFLUENZA VACCINE (#1) 2019 DEPRESSION SCREENING 12/07/2020 Postponed from 2010 (Other) HIV SCREENING Completed 06/27/2019 MENINGOCOCCAL VACCINE IMM Aged Out No longer eligible based on patient's age to complete this topic PNEUMOCOCCAL 0-64 YRS Aged Out No longer eligible based on patient's age to complete this topic documented as of this encounter Results Not on filedocumented in this encounter Visit Diagnoses Diagnosis Acid indigestion - Primary Dyspepsia and other specified disorders of function of stomach Pancreatic cyst Cyst and pseudocyst of pancreas Change in bowel habits Other symptoms involving digestive system documented in this encounter Insurance Payer Benefit Plan / Subscriber ID Effective Dates Phone Address Type Group [place]EUDY [place] [facility] xxxxxxxxxxx 2018-Present Aneudy documented as of this encounter
--- NOTE | 2019-07-11 10:30 | ED ---
Abdominal Pain/Male - HPI Summary HPI Summary: Patient is a 19-year-old male who presents emergency department for ongoing abdominal pain 8 days. Patient notes he has been having issues with abdominal pain for about one year now. He notes associated symptoms of nausea and vomiting. Patient states pain is located to his left lower quadrant. Patient has had 2 CAT scans of his abdomen and pelvis in the ER and numerous x-rays within the last year. He had incidental findings of a pancreatic cyst. Patient notes he saw a GI specialists and had an endoscopy performed which was negative per patient. Patient also notes he has been dealing with anxiety and depression over the last year since his mother committed suicide. Patient otherwise denies fever, chills, chest pain, shortness of breath, urinary symptoms, diarrhea. Patient denies homicidal or suicidal ideations. He follows with a counselor at [facility]. Currently takes Zoloft. - History of Current Complaint Chief Complaint: EDAbdPain Stated Complaint: ABDOMINAL PAIN/VOMITING PER PT Time Seen by Provider: 07/11/19 10:09 Hx Obtained From: Patient Pain Intensity: 2 - Allergies/Home Medications Allergies/Adverse Reactions: Allergies Allergy/AdvReac Type Severity Reaction Status Date / Time No Known Allergies Allergy Verified 11/13/18 21:46 Home Medications: Home Medications Sertraline* [Zoloft*] 50 mg PO DAILY 07/11/19 [History Confirmed 07/11/19] PMH/Surg Hx/FS Hx/Imm Hx Previously Healthy: Yes Endocrine/Hematology History: Denies: Hx Diabetes Cardiovascular History: Denies: Hx Cardiac Arrest GI History: Reports: Other GI Disorders - constipation History: Denies: Hx Dialysis, Hx Kidney Stones Musculoskeletal History: Denies: Hx Arthritis, Hx Osteoporosis Sensory History: Denies: Hx Legally Blind, Hx Deafness Opthamlomology History: Denies: Hx Legally Blind Neurological History: Denies: Hx Dementia Psychiatric History: Denies: Hx Eating Disorder, Hx of Violent Episodes Against Others Infectious Disease History: No Infectious Disease History: Denies: Traveled Outside the [place] in Last 30 Days - Family History Known Family History: Positive: Other - no GI fam hx, Non-Contributory - Social History Occupation: Student Lives: With Family Alcohol Use: Rare Substance Use Type: Reports: None Smoking Status (MU): Never Smoked Tobacco Review of Systems Constitutional: Negative Negative: Fever, Chills ENT: Negative Cardiovascular: Negative Positive: Shortness Of Breath Positive: Abdominal Pain, Vomiting, Nausea. Negative: Diarrhea Genitourinary: Negative Skin: Negative Neurological: Negative Positive: Depressed All Other Systems Reviewed And Are Negative: Yes Physical Exam Triage Information Reviewed: Yes Vital Signs On Initial Exam: Initial Vitals Temp Pulse Resp BP Pulse Ox 99.0 F 103 18 126/77 96 07/11/19 09:18 07/11/19 09:18 07/11/19 09:18 07/11/19 09:18 07/11/19 09:18 Vital Signs Reviewed: Yes Appearance: Positive: Well-Appearing - Pt. sitting up in bed in NAD. Apperas tired but nontoxic. Skin: Positive: Warm, Dry Head/Face: Positive: Normal Head/Face Inspection Eyes: Positive: Normal, EOMI Neck: Positive: Supple Respiratory/Lung Sounds: Positive: Clear to Auscultation, Breath Sounds Present Cardiovascular: Positive: Normal, RRR Abdomen Description: Positive: Nontender, Soft. Negative: Distended, Guarding, McBurney's Point Tenderness Neurological: Positive: Normal, CN Intact II-III Psychiatric: Positive: Affect/Mood Appropriate Procedures - Sedation Patient Received Moderate/Deep Sedation with Procedure: No Diagnostics - Vital Signs Vital Signs Temp Pulse Resp BP Pulse Ox 07/11/19 09:18 99.0 F 103 18 126/77 96 - Laboratory Result Diagrams: 07/11/19 10:22 07/11/19 10:23 Lab Statement: Any lab studies that have been ordered have been reviewed, and results considered in the medical decision making process. Abdominal Pain Male Course/Dx - Course Course Of Treatment: Pt. presenting with ongoing abd. pain x 1 year. He is a febrile with stable VS. Pt. Has no reproducible pain on exam. Basic labs obtained in triage. Unremarkable other than minimally elevated WBC. Pt. requesting IV fluids and given zofran. He is tolerating POs. Pt. agreeable to talk with given his ongoing anxiety. Feel his abd. pain is most likely secondary to his anxiety. Zack, customer supply coordinator with , saw pt. twice in the ED. He discussed case with pscychiatrist who does not feel pt. meets inpt. criteria at this time. Pt. agreeable with me home. Pt. concerned of what he should do if pain returns. Discussed pt.'s diet and foods to avoid. Discussed trying bentyl since pt. notes his GI doc thinks he may have IBS. Pt. would like to try bentyl. Advised to call his gi doctor today for close f.u. He has an apt. with his therapist tomorrow. To return to ER if sxs change or worsen. - Diagnoses Differential Diagnosis/HQI/PQRI: Appendicitis, Bowel Obstruction, Constipation, Peptic Ulcer Disease, Ureteral Stone Provider Diagnoses: Chronic abdominal pain, Anxiety Discharge ED - Sign-Out/Discharge Documenting (check all that apply): Patient Departure - Discharge Plan Condition: Improved Disposition: HOME Prescriptions: Dicyclomine CAP* [Bentyl CAP*] 10 mg PO QID #20 cap Ondansetron TAB* [Zofran 4 MG Tab*] 4 mg PO Q6H PRN #12 tab PRN Reason: Nausea Patient Education Materials: Grief and Loss (ED), Chronic Abdominal Pain (ED) Referrals: [facility] @ [Outside] Additional Instructions: Call your GI doctor today for a close follow up appointment Follow up with your counselor tomorrow as scheduled Medication as directed Return to ER if symptoms change or worsen - Billing Disposition and Condition Condition: IMPROVED Disposition: Home - Attestation Statements Provider Attestation: I was available for consultation for this patient. I did not evaluate the patient, or participate in any medical decision making or disposition decisions unless I am specifically named in the chart as having consulted on the patient. If I have consulted on the patient, please see my own ED note on the patient encounter. Cruz Monahan MD
[2019-07-11 10:34] LABS: ABS Lymphocytes 1.6 10^3/ul (1.0-4.8); ABS Neutrophils 8.6 10^3/ul (1.5-7.7); Eosinophil % 0.2 %; Hematocrit 49 % (42-52); Hemoglobin 16.8 g/dL (14.0-18.0); Lymphocyte % 14.3 %; Mean Corpuscular HGB Conc 34 g/dL (31-36); Mean Corpuscular Hemoglobin 29 pg (27-31); Mean Corpuscular Volume 85 fL (80-94); Mean Platelet Volume 8.2 fL (7.4-10.4); Nucleated Red Blood Cells % 0.1; Platelet Count 305 10^3/uL (150-450); Red Blood Count 5.78 10^6 /uL (4.18-5.48); Red Cell Distribution Width 13 % (10-15); White Blood Count 11.4 10^3/uL (3.5-10.8)
[2019-07-11 10:53] LABS: Albumin/Globulin Ratio 1.6 (1-3); BUN/Creatinine Ratio 15.8 (8-20); C Reactive Protein 1.3 mg/L (<8.01); Calcium 10.5 mg/dL (8.6-10.3); EGFR African American 121.1 (>60); EGFR Non-African American 100.1 (>60); Globulin 3.1 g/dL (2-4); Potassium 3.9 mmol/L (3.5-5.0); Total Bilirubin 0.7 mg/dL (0.2-1.0); Total Protein 8.1 g/dL (6.4-8.9)
[2019-07-11] MEDS: Ondansetron INJ* 2 MG/ML VIAL IV ONE (10:56)
[2019-07-11] MEDS: NS 0.9% 1000 ML** 1,000 ML IV ONE (10:57)
[2019-07-11 13:01] VITALS: BP 134/77
[2019-07-11] MEDS: Ondansetron ODT TAB* 4 MG PO ONE (13:08)
== END 2019-07-11 12:45 | disposition home or self-care (01) ==
LOC: ED 09:08
DX: R10.9 Unspecified abdominal pain (principal); G89.29 Other chronic pain; F41.9 Anxiety disorder, unspecified; Z79.899 Other long term (current) drug therapy
CPT/HCPCS: 36415; 80053; 83605; 83690; 85025; 86140; 96361; 96374; 99284; A9270-GY; J2405